=== PATIENT | female | born 1970 | race African-American/Black ===

== ENCOUNTER 2016-08-03 11:21 | Emergency (ER) | payer OTHER ==
[~2016-08-03 11:21] MED LIST: BACTRIM DS TABL1 TA1 PO; BENTYL20 M1; CALCIUM1 TAB.CHEW; CLARITIN D; EFFEXOR-XR150 MG DOB; EYE DROP15 ML; FLEXERIL10 MG PO; FLONASE 0.05% N16 G1; GABAPENTIN300 MG PO; IBUPROFEN800 MG PO; LIPITOR; MOTRIN600 M2; NO MEDICATIONS; PATADAY2.5 ML OU; SKELAXIN PO; VITAMIN D50000 UNIT; VOLTAREN50 MG PO; ZYRTEC10 M1 PO
== END 2016-08-03 11:36 | disposition home or self-care (01) ==
LOC: SED 11:21
DX: L03.116 Cellulitis of left lower limb (principal); T78.40XA Allergy, unspecified, initial encounter; Z88.5 Allergy status to narcotic agent; Z88.1 Allergy status to other antibiotic agents; Z88.6 Allergy status to analgesic agent
CPT/HCPCS: 99282